=== PATIENT | male | born 1960 | race Caucasian/White ===

== ENCOUNTER → 2016-10-24 | Outpatient (CLI) | payer OTHER ==
[~2016-10-24] MED LIST: ACETAMINOPHEN GT; ACETAMINOPHEN PEG; ACETAMINOPHEN325 MG GT; ADULT MUCU100 MG/5 M GT; ADULT MUCU100 MG/5 M PEG; ADULT MUCU100 MG/5 M PO; ADULT TUSS100 MG/5 M PEG; ALBUTEROL INH; ALBUTEROL0.83 MG/ML IH; ALL DAY ALLERGY10 M3 GT; ALLERGY REL5 MG/5 ML GT; ARTIFICIAL TEAR1 DRP OP; ARTIFICIAL TEAR15 M3 OP; ASPIRIN GT; ASPIRIN81 M1 GT; ASPIRIN81 MG GT; ATROVENT30 ML NS; AYR SALINE50 M1 NS; AYR50 ML NS; BACID CAPLET1 EACH GT; BACID GT; BACLOFEN5 GM GT; CALCITRATE + V1 EACH GT; CALCIUM + VITAM1 TAB PEG; CALCIUM CIT PO; CALCIUM CITRATE1 T12 GT; CALMOSEPTINE O3.5 GM TOP; CALMOSEPTINE O3.5 GM TP; CEFEPIME IV; CENTRUM240 ML GT; CEROVITE SILVER1 TA1; CHILDREN'S5 MG/5 M1 GT; CHLORHEX GLU DT; CIPRO PO; CITRACAL + D CA1 TA1 GT; CITRACAL + D CA1 TA1 PEG; CITRACAL PLUS T1 TAB PEG; CITRACAL PLUS T1 TAB PO; CITRACAL200 MG PO; CLARITIN10 M3 PEG; CLARITIN10 MG PEG; CLARITIN5 MG/5 ML GT; CYANOCOBAL1000 MCG/M SUBQ; DEPRIZINE15 MG/1 ML GT; DIAPER RASH TOP; E.E.S. 200200 MG/5 M GT; ENEMA RC; FERROUS SULFATE GT; FLAGYL GT; FREE WATER GT; GAS RELIEF40 MG/0.1 GT; GAVILYTE-G SO4000 ML GT; GENASYME GT; GENTAMICIN; HEARTBURN150 MG GT; HYDROCORTISONE CREAM TOP; IPRATROPIUM0.2 MG/ML NEB; JEVITY1000 M1 GT; K-LOR HOSPITAL20 ME1 PEG; KCL GT; KLOR-CON PEG; LACTULOSE10 G/15 ML GT; LASIX GT; LASIX20 MG GT; LASIX20 MG PEG; LORATADINE GT; MAGIC BUTT C TOP; MAGIC BUTT CREAM; MAXIPIME; METOCLOPRAM5 MG/5 ML GT; METOCLOPRAM5 MG/5 ML PO; METOCLOPRAMID5 MG/M2 GT; METOCLOPRAMIDE GT; MIACALCIN4 ML; MIRALAX255 GM GT; MIRALAX255 GM PO; MONTELUKAST SOD10 MG GT; MUCOMYST200 MG/ML NEB; MVI LIQUID PO; MYLICON GT; MYLICON40 MG/0.1 GT; MYLICON40 MG/0.1 PEG; MYLICON40 MG/0.6; MYLICON40 MG/0.6 GT; NASCOBAL; NASCOBAL2.3 ML NS; NEBCIN1.2 GM IN; NILSTAT TOP; OSMOLITE 1.21000 ML GT; PATIENT'S PHARMACY; PERIDEX480 ML PO; POLYETHYLENE GL90 GM GT; POTASSIUM20 MEQ/11 GT; PRIMAXIN IV; PRO STAT GT; PROBIOTIC FORM1 EACH GT; PROBIOTIC1 EACH GT; PULMICORT NEB; PULMICORT0.5 MG/21 INH; Q PAP GT; Q-PAP PEG; Q-PAP160 MG/51 GT; REGLAN5 MG GT; REGLAN5 MG PEG; RISAMINE OINTM113 GM TP; RISAMINE OINTMENT; ROBAFEN100 MG/5 M GT; ROBITUSSIN100 MG/51 GT; ROBITUSSIN100 MG/51 PEG; SALINE NASAL GEL TOP; SENOKOT GT; SENOKOT60 ML PEG; SILVADENE TOP; SILVASORB; SINGULAIR PO; TALADINE150 MG GT; TAMIFLU75 M1 GT; THERAVITE; THERAVITE GT; TOBRAMYCIN; TOBRAMYCIN NEB; TYL325 GT; TYLENOL325 M1 GT; TYLENOL325 M1 PEG; TYLENOL325 M1 PO; VANCOMYCIN HCL125 MG GT; VANCOMYCIN250 MG/2.5 GT; VANCOMYCIN250 MG/5 M GT; VANCOMYCIN250 MG/5 M PEG; VASOLEX OINTMEN30 GM TP; VIBRAMYCIN100 M1 DOB; VITAMIN D1000 UNI1 GT; VITAMIN D3400 UNIT/1 GT; VITAMIN D400 UNI1 GT; VITAMIN D400 UNI1 PEG; VITAMIN D400 UNI3 PEG; VITAMIN D400 UNIT/1; XOPENEX1.25 MG/0. NEB; ZANTAC GT; ZANTAC PEG; ZANTAC PO; ZANTAC150 MG GT; ZITHROMAX200 MG/5 M PEG; [UNRECOGNIZED DRUG - OTHER]; [UNRECOGNIZED DRUG - OTHER]; [UNRECOGNIZED DRUG - OTHER]; [UNRECOGNIZED DRUG - OTHER] GT; [UNRECOGNIZED DRUG - OTHER] OP; [UNRECOGNIZED DRUG - OTHER] PO; [UNRECOGNIZED DRUG - OTHER] TOP; [UNRECOGNIZED DRUG - REMARK] GT
== END | disposition home or self-care (01) ==
LOC: CSSDAY 09:12
DX: M81.0 Age-related osteoporosis without current pathological fracture (principal)
CPT/HCPCS: 96372; J0897

== ENCOUNTER 2017-01-29 10:08 | Inpatient (IN) | payer OTHER ==
--- NOTE | ~2017-01-29 | HP ---
Unit #: [id number] #: [id number] Patient: HANY SAN [id number] [address] [place], [place] [address] [id number] I MR#: [id number] NAME: HANY SAN ROOM: 21522 Age: 56 Sex: M Admission Date: 01/29/2017 : 1960 Attending Physician: Jeff Travis M.D. Primary Care Physician: Tommy Suazo Sr., M.D. HISTORY AND PHYSICAL ADMISSION DIAGNOSES 1. Healthcare-acquired pneumonia. 2. Ileus. 3. History of mental retardation. 4. History of cerebral palsy. 5. History of dysphagia status post PEG. HISTORY OF PRESENT ILLNESS Mr. San is a 56-year-old gentleman, resident of [facility], with a history of mental retardation, cerebral palsy and dysphagia, who reported to the emergency room secondary to some increasing distress and abdominal discomfort. Initial evaluation in the emergency room with the CT of the abdomen showed ileus as well as the lung base opacity. He had a leukocytosis with 22,000 and was started on IV triple antibiotics for healthcare-acquired pneumonia coverage and getting admitted. The patient is one with the mental retardation and cerebral palsy. He is nonverbal. Therefore, I am not able to obtain any review of systems neither am I able to obtain any further history. So, a 12-point review of systems on this patient as above. PAST MEDICAL HISTORY History, again, mental retardation, cerebral palsy and dysphagia. PAST SURGICAL HISTORY Hemicolectomy and G-tube placement. SOCIAL HISTORY A resident of a [facility] at [place]. No history of tobacco, alcohol or drugs. FAMILY HISTORY Unremarkable. ALLERGIES Amoxicillin, sulfa, Levaquin and Augmentin. HOME MEDICATIONS I do not have in front of me but this will be clarified with the pharmacy and restated accordingly. PHYSICAL EXAMINATION GENERAL APPEARANCE: He is a 56-year-old gentleman in no acute distress. VITAL SIGNS: Blood pressure 135/87. Heart rate 97. Respirations 17. Temperature 98. Unit #: [id number] #: [id number] Patient: HANY SAN HEENT: Head is atraumatic. Pupils equal, round and reactive to light. Extraocular muscles intact. Oropharynx clear. NECK: Supple. No mass. No JVD. No bruits. CHEST: Diminished bilaterally. CARDIOVASCULAR: S1, S2. No murmurs. ABDOMEN: Soft, nontender, nondistended. EXTREMITIES: Lower extremities without any cyanosis, clubbing or edema. NEUROLOGIC: Unobtainable secondary to patient's mental retardation and cerebral palsy. DIAGNOSTIC STUDIES LABORATORY: White count, again, 22,000, hemoglobin 14.7, hematocrit 44.7. Chemistry: Unremarkable except of sodium of 134 and chloride 99. Lipase 52. IMAGING: CT abdomen and pelvis as above. ASSESSMENT AND PLAN 1. Healthcare-acquired pneumonia started on triple antibiotic coverage, Aztreonam, vancomycin and tobramycin. Pulmonary to follow. 2. Ileus status post colectomy in the past. We will ask LSA to follow. Keep n.p.o. for now. 3. Questionable pancreatitis. As above, keep n.p.o., hydrate, symptomatic management. 4. History of mental retardation and cerebral palsy. 5. GI and DVT prophylaxis. Dictated by Joselyn Teran/delmi TD: 01/29/2017 16:55 JOB #: [id number] HISTORY AND PHYSICAL Page 1 of 1 X Jfef Travis MD X HISTORY AND PHYSICAL
--- NOTE | ~2017-01-29 | CR72 ---
[facility] A Service of [facility] & [facility] RADIOLOGY TEXT RESULTS PATIENT: HANY SAN LOCATION: [facility] 314-01 : [birth year] UNIT #: [id number] AGE: [address]: Jeff Travis MD SEX: M ORDER DR: [id number] [facility] [address] [facility]. [place], [place] [address] [id number] I MR#: [id number] Acc #: [id number] NAME: HANY SAN : 1960 SEX: M STUDY DATE/TIME: 01/29/2017 16:43 UNIT: [address] ROOM: [facility] STUDY DESCRIPTION: CR Chest Single View Portable Attending Physician: Jeff Travis M.D. Ordering Physician: Jason Jim M.D. Primary Care Physician: Tommy Suazo Sr., M.D. MEDICAL IMAGING REPORT This report is preliminary unless electronic signature is present EXAM Portable chest HISTORY Line placement today. Congestion. FINDINGS Right IJ central line extends into the right atrium and its tip is obscured by overlying monitor lead. The line likely extends at least 2 cm into the right atrium beyond the junction of the SVC and right atrium. Moderate to moderately severe elevation of the right hemidiaphragm, with moderate linear atelectasis or scarring at the right base. Moderately severe right lower thoracic curve and severe left lumbar curve and moderate gaseous distension of small and large bowel suggesting generalized ileus. No pneumothorax. Dictated by... Hernan Remy M.D. THIS IS AN ELECTRONICALLY VERIFIED REPORT Hernan Remy M.D. at 01/29/2017 10:24 PM DFL/cee TD: 01/29/2017 19:31 JOB #: [id number] MEDICAL IMAGING REPORT Page 1 of 1 COPY
--- NOTE | ~2017-01-29 | CO ---
Unit #: [id number] #: [id number] Patient: HANY SAN [id number] [address] [address] [id number] I MR#: [id number] NAME: HANY SAN ROOM: 79404 Age: 56 Sex: M Admission Date: 01/29/2017 : 1960 Attending Physician: Jeff Travis M.D. Primary Care Physician: Tommy Suazo Sr., M.D. Consultation Date: 01/29/2017 CONSULTATION REPORT REASON FOR CONSULTATION Pneumonia and central line placement. CHIEF COMPLAINT Patient is basically mental retarded and was sent from [place] with the complaint of abdominal pain and possible small bowel obstruction. I am seeing him at the bedside. He appears to be comfortable. He is nonverbal. PAST MEDICAL HISTORY Mental retardation. SOCIAL HISTORY Nonsmoker, no alcohol, and no drug abuse. FAMILY HISTORY None as per record. MEDICATIONS As per MAR and have been reviewed. ALLERGIES Reviewed. REVIEW OF SYSTEMS Unable to obtain. PHYSICAL EXAMINATION VITAL SIGNS: Temperature 98, pulse 97, respirations 16, blood pressure 135/87, and oxygen saturation 93%. NEUROLOGICAL: Awake, at baseline. CARDIOVASCULAR: S1 plus S2. RESPIRATORY: Bilateral air entry. Bilateral mild rhonchi. GASTROINTESTINAL: Nontender, distended, soft. Bowel sounds positive. EXTREMITIES: No edema. DIAGNOSTIC STUDIES LABORATORY: White count is 22, hemoglobin 14, hematocrit 44, and platelet count is 244,000. IMAGING: CT abdomen and pelvis was done and showed diffuse ileus and right lower lobe infiltrate. ASSESSMENT 1. Ileus. Unit #: [id number] #: [id number] Patient: HANY SAN 2. Questionable healthcare-associated pneumonia. PLAN Admit the patient. IV fluids. Surgical consult. Broad spectrum IV antibiotics. GI and DVT prophylaxis. Please see orders for detailed plans. Thank you very much for the consultation. Dictated by... Joselyn Ocasio TD: 01/29/2017 18:47 JOB #: [id number] CONSULTATION REPORT Page 1 of 1 X Rae Holcomb MD CONSULTATION REPORT
--- NOTE | ~2017-01-29 | CO ---
Unit #: [id number] #: [id number] Patient: HANY SAN [id number] [address] [place], [place] [address] [id number] I MR#: [id number] NAME: HANY SAN ROOM: 314 Age: 56 Sex: M Admission Date: 01/29/2017 : 1960 Attending Physician: Jeff Travis M.D. Primary Care Physician: Tommy Suazo Sr., M.D. Consultation Date: 01/30/2017 CONSULTATION REPORT BRIEF HISTORY Patient is a 56-year-old gentleman with cerebral palsy who is total care, who presents with abdominal pain, questionable fevers. Initial evaluation in the emergency room showed a pneumonia as well as a possible ileus on CT scan. I am asked to evaluate for ileus. Past history is complex. He has had a hemicolectomy, G tube placement, Arin fundoplication. MEDICATIONS 1. Baclofen. 2. Potassium. 3. Pulmicort. 4. Tylenol. 5. Robafen. SOCIAL HISTORY No smoking. No alcohol. FAMILY HISTORY Negative for GI malignancy. REVIEW OF SYSTEMS Impossible to obtain. PHYSICAL EXAMINATION GENERAL: He is awake, alert, comfortable. VITAL SIGNS: Currently afebrile. HEENT: Unremarkable. NECK: Supple. No JVD. Trachea midline. LUNGS: Clear to auscultation bilaterally. Breath sounds symmetric. CARDIOVASCULAR: Regular rate and rhythm. ABDOMEN: His abdomen was soft. The G tube is clean. There are no hernias. No point tenderness. EXTREMITIES: Multiple contractures. DIAGNOSTIC STUDIES LABORATORY: Labs show a white count of 14.6, hemoglobin 13. ASSESSMENT Ileus, secondary to pneumonia. PLAN Recommend G tube to bedside drainage. Unit #: [id number] #: [id number] Patient: HANY SAN Dictated by... Paulino Wise M.D. Kaylyn TD: 01/30/2017 09:42 JOB #: [id number] CONSULTATION REPORT Page 1 of 1 X Paulino Wise MD X CONSULTATION REPORT
--- NOTE | ~2017-01-29 | CT4 ---
[facility] A Service of [facility] RADIOLOGY TEXT RESULTS PATIENT: HANY SAN LOCATION: A 314-01 : [birth year] UNIT #: [id number] AGE: [address]: Jeff Travis MD SEX: M ORDER DR: [id number] [facility] [address] [facility] [place] [facility]. [place], [place] [address] [id number] MR#: [id number] Acc #: [id number] NAME: HANY SAN : 1960 SEX: M STUDY DATE/TIME: 01/29/2017 11:20 UNIT: [facility] ROOM: STUDY DESCRIPTION: CT Abd and Pelv Wo Cont Attending Physician: Jason Jim M.D. Ordering Physician: Jason Jim M.D. Primary Care Physician: Tommy Suazo Sr., M.D. MEDICAL IMAGING REPORT This report is preliminary unless electronic signature is present EXAM Abdomen and pelvis CT without contrast. HISTORY Abdominal pain with nausea, onset today. COMPARISON 04/01/2016 TECHNIQUE Axial images were obtained without contrast. This CT exam was performed with one or more of the following radiation dose reduction techniques: automatic exposure control, adjustment of mA and/or kV according to patient size, and iterative reconstruction. FINDINGS Consolidation is seen at both lung bases, right worse than left. Right basilar consolidation is worse since the previous examination, although the difference is not great. No definite acute pneumonia is seen at the base. In the abdomen, colonic distension is seen predominantly. There are also moderately distended small bowel loops. The appearance is similar to the previous scan. The pattern is nonspecific. It is more suggestive of an ileus than a mechanical obstruction. There is a large amount of stool in the rectosigmoid. There is a right inguinal hernia that contains part of the bladder. No free fluid is seen in the pelvis or in the peritoneal cavity. IMPRESSION 1. Moderately distended small and large bowel loops are noted in a nonspecific pattern. Findings are more suggestive of an ileus than a [facility] A Service of [facility] RADIOLOGY TEXT RESULTS PATIENT: HANY SAN LOCATION: A 314-01 : [birth year] UNIT #: [id number] AGE: [address]: Jeff Travis MD SEX: M ORDER DR: mechanical obstruction. Fecal impaction in the distal colon could also account for these findings. There does appear to be a large amount of stool in the rectosigmoid area. 2. Consolidative changes at the right lung base are slightly more prominent than on the previous examination. However, the change is not great and no definite new superimposed basilar pneumonia is identified. Dictated by... Keyon Luis M.D. THIS IS AN ELECTRONICALLY VERIFIED REPORT Keyon Luis M.D. at 02/02/2017 6:27 PM DOMINGUEZ/jc TD: 01/29/2017 12:20 JOB #: [id number] MEDICAL IMAGING REPORT Page 1 of 1 COPY
--- NOTE | ~2017-01-29 | A ---
[facility] Nutrition Therapy DATE: 01/30/17 Patient: HANY SAN Physician: SANG Address: [facility] Room/Bed: [address] [place] [address], Zip: [place] [address] Admit Date: 01/29/17 Date of : [birth year] Height: 5 2 Weight: NUTRITIONAL ASSESSMENT: REASON: 1 point malnutrition risk score re: home TF + low BMI Admitting Dx: 56 y/o male admitted from [place] with HCAP and ileus PMH: Mental retardation, Cerebal Palsy, dysphagia s/p PEG, hemicolectomy, Arin Anthropometrics: Ht: 55" (per chart), Wt: 33.5 kg (per bed scale), BMI: 17.2 (underweight) Labs: K+ 3.3, Na/glucose WNL, no Mg/Phos Meds: Nacl, Mylicon, D5NS @ 75 ml/hr I/O & Bowel function: Last BM unknown Skin Integrity: [place] L groin/coccyx/low back, scar to abdomen/coccyx, no edema Estimated Nutrition Needs: 5423-7738 kcals per day (30-35 kcals/kg) 40-50 g protein per day (1.2-1.5 g/kg) Fluids consistent with kcal needs or per MD Assessment: Chart reviewed, events noted. Patient is a resident at [facility] with history as stated above, is stict NPO at [facility] and received EN with Promote @ 90 ml/hr from 8a-8p via PEG, which meets the patient's estimated nutrition needs. CT scan confirmed ileus, g-tube currently to gravity and he is not receiving EN at this time. He is clinically underweight, [facility] Note height in [facility] is incorrect. He is on room air, is non-verbal and therefore inappropriate for interview. See EN recs as stated below, will follow. Dx: Inadequate energy intake r/t ileus AEB NPO, g-tube to gravity. Intervention: EN recs as stated below, replace lytes Monitoring, Evaluation and Goals: 1. EN consistent with estimated needs. 2. Promote normal GI function. 3. GRV's < 400 ml. 4. Promote a gradual weight gain towards a healthy BMI range. 5. Lytes WNL. [facility] Nutrition Therapy DATE: 01/30/17 Patient: HANY SAN Physician: SANG Address: [facility]/MR Room/Bed: [address] [place] [address], Zip: [place] [address] Admit Date: 01/29/17 Date of : 62 Height: 5 2 Weight: Monitor: Per protocol, criteria to determine if above goals met Recommendations: 1. Suggest starting enteral nutrition via PEG once medically feasible. Recommend Promote with Fiber formula, start @ 20 ml and increase by 10 ml q 6 hours until goal rate of 45 ml/hr is reached. This will provide 1080 kcals, 68 g protein and 896 ml water. Once at goal rate add free water flushes of 75 ml QID or per MD. 2. Do not hold feeds for residuals < 400 ml. For residuals > 400 ml do not stop feeds and measure again in 4 hours. If 2nd measurement is > 400 ml stop feeds and continue to reassess every 4 hours. Restart feeds once residual is < 400 ml. If ileus does not improve suggest adding Reglan to medication regimen. 3. Replace lyts prn (K+ low). 4. Please enter the patient's correct heigh (55") and current weight in [facility]. Continue to weigh q 3 days for monitoring purposes, as the patient is underweight. 5. Please consult RD or call [phone] with any further nutritional needs. RD will follow hospital course Mild-moderate nutrition risk Respectfully, Darshana Jackson, BRANDON, LD [employer] [facility] [employer] cc: client file
--- NOTE | ~2017-01-29 | DS ---
Unit #: [id number] #: [id number] Patient: HANY SAN [id number] [address] [place], [place] [address] [id number] I MR#: [id number] NAME: HANY SAN ROOM: 314 Age: 56 Sex: M Admission Date: 01/29/2017 : 1960 Discharge Date: 02/01/2017 Attending Physician: Jeff Travis M.D. Primary Care Physician: Tommy Suazo Sr., M.D. DISCHARGE SUMMARY DISCHARGE DIAGNOSES 1. Questionable pneumonia was ruled out by Pulmonary. 2. Ileus, resolved. 3. History of mental retardation. DISPOSITION Going back to [facility]. Please note that if there are transportation issues, patient might go first thing in the morning. DISCHARGE MEDICATIONS 1. Pulmicort inhaler b.i.d. 2. Tylenol p.r.n. 3. Simethicone 40 mg per G-tube q.i.d. 4. Cetirizine 10 mg daily. 5. GaviLyte solution b.i.d. 6. Guaifenesin q.6 hours p.r.n. for cough. 7. Ranitidine 150 mg daily. 8. Singulair 10 mg daily. 9. Calcium with vitamin D daily. 10. Potassium chloride pills b.i.d. 11. Baclofen 10 mg b.i.d. 12. Vitamin D 400 units per G-tube daily. Please note that all medications are through the G-tube. CONSULTS DURING THIS HOSPITAL STAY 1. Dr. Wise, [facility]. 2. Dr. Holcomb, Pulmonary. LABS, DIAGNOSTICS, AND PROCEDURES DURING THIS HOSPITAL STAY 1. CT abdomen and pelvis on admission showed some ileus and also consolidative changes in the right lung base. 2. Chest x-ray showed no acute findings. Some moderate to moderately severe elevation of the right hemidiaphragm with linear atelectasis or scarring at the right base. 3. Blood culture negative. HISTORY OF PRESENT HOSPITAL STAY Please refer to History and Physical done by me for initial presentation on this gentleman. ACTIVE PROBLEMS DIAGNOSED Questionable pneumonia. Initial CT was suspicious for pneumonia. Patient was started on triple IV antibiotics for pneumonia coverage. However, Unit #: [id number] #: [id number] Patient: HANY SAN patient remained nontoxic appearing with no sign of respiratory distress, afebrile, and white count of 10.7. Patient is status post evaluation per Pulmonary. Per Pulmonary, there is no pneumonia, and all the antibiotics have been discontinued. Ileus, status post evaluation per Surgery. This was managed conservatively with some IV fluids and today restarted on fluids. He was briefly put on Reglan and tolerating diet. No surgical issues. Stable to be discharged. History of mental retardation. DISPOSITION As above with discharge medications as above. FOLLOWUP With Dr. Dawson at the correction. Dictated by... Joselyn Teran/abbi TD: 02/01/2017 17:47 JOB #: [id number] DISCHARGE SUMMARY Page 1 of 1 X Jeff Travis MD X DISCHARGE SUMMARY
--- NOTE | ~2017-01-29 | OR ---
Unit #: [id number] #: [id number] Patient: HANY SAN [id number] [address] [address] [id number] I MR#: [id number] NAME: HANY SAN ROOM: 314 Date of Procedure: 01/29/2017 Admission Date: 01/29/2017 Surgeon: Rae Holcomb M.D. : 1960 Attending Physician: Jeff Travis M.D. Primary Care Physician: Tommy Suazo Sr., M.D. PROCEDURE OPERATIVE NOTE PROCEDURE PERFORMED Right internal jugular central venous catheter placement. INDICATION IV access. DETAILS OF PROCEDURE After placing patient in proper position, with ultrasound guidance and under all aseptic measures, we cleaned the right side of the neck with ChloraPrep and then placed a triple-lumen central venous catheter in the right internal jugular central vein. The guidewire was removed in total. All three ports were flushed and working. No complications happened. Patient tolerated the procedure very well. Dictated by... Joselyn Ocasio TD: 01/29/2017 18:55 JOB #: [id number] PROCEDURE OPERATIVE NOTE Page 1 of 1 X Rae Holcomb MD PROCEDURE OPERATIVE NOTE
[~2017-01-29 10:08] MED LIST changes: -ALL DAY ALLERGY10 M3 GT; -BACLOFEN5 GM GT; -CALCITRATE + V1 EACH GT; -GAVILYTE-G SO4000 ML GT; -HEARTBURN150 MG GT; -POTASSIUM20 MEQ/11 GT; -PULMICORT0.5 MG/21 INH; -ROBAFEN100 MG/5 M GT; -TYL325 GT; -VITAMIN D3400 UNIT/1 GT
[2017-01-29 11:22] LABS: URINE SOURCE CLEAN CATCH
[2017-01-29 11:31] LABS: URINE APPEARANCE TURBID; URINE BILIRUBIN NEG (NEG); URINE BLOOD NEG (NEG); URINE COLOR YELLOW; URINE GLUCOSE NEG (NEG); URINE KETONE 1+ (NEG); URINE LEUKOCYTE ESTERASE NEG (NEG); URINE NITRATE NEG (NEG); URINE PH 7.5 (5-8); URINE PROTEIN 1+ (NEG); URINE SPECIFIC GRAVITY 1.017 (1.003-1.035)
[2017-01-29 11:32] LABS: URBCS1 AUWI 0-2 /[HPF] (0-2); URINE BACTERIA AUWI NEG (NEGATIVE); URINE SQUAMOUS EPITHELIAL CELL FEW /[HPF]; UWBCS1 AUWI 0-2 (0-5)
[2017-01-29 11:32] LABS: BASOPHIL% 0.1 % (0-2.5); EOSINOPHIL# 0.1 X10e3 (0-0.7); EOSINOPHIL% 0.4 % (0.0-7.0); HEMATOCRIT 44.7 % (38.0-50.0); HEMOGLOBIN 14.7 gm/dL (13.0-16.0); LYMPHOCYTE% 4.6 % (17.0-45.0); MEAN CELL VOLUME 90.5 FL (83-96); MEAN CORPUSCULAR HEMOGLOBIN 29.7 PG (28-34); MEAN CORPUSCULAR HGB CONC 32.8 g/dL (30-36); MEAN PLATELET VOLUME 9.6 FL (6.5-11.5); MONOCYTE# 1.1 X10e3 (0-1.0); MONOCYTE% 5.1 % (3.0-12.0); NEUTROPHIL# 19.8 X10e3 (1.5-7.1); NEUTROPHIL% 89.8 % (40-75); PLATELET COUNT 244 X10e3 (140-420); RED BLOOD COUNT 4.94 X10e (3.90-5.60); RED CELL DISTRIBUTION WIDTH 13.4 % (11.0-15.5); WHITE BLOOD COUNT 22.1 X10e3 (4.0-10.5)
[2017-01-29 11:33] LABS: DIFF IND YES
[2017-01-29 11:42] LABS: CULTURE INDICATED? NO
[2017-01-29 11:45] LABS: URINE AMORPHOUS SEDIMENT AMORP PHOSPHATES; URINE MUCUS PRESENT
[2017-01-29 12:08] LABS: PLATELET ESTIMATE NORMAL (NORMAL); RBC NORMAL YES
[2017-01-29 12:28] LABS: ALBUMIN SERUM 3.6 g/dL (3.5-5.0); BILIRUBIN, DIRECT 0.2 mg/dL (0.0-0.2); BILIRUBIN,INDIRECT 1.1 mg/dL (0.0-0.9); BILIRUBIN,TOTAL 1.3 mg/dL (0.2-2.0); CALCIUM SERUM 8.9 mg/dL (8.4-10.2); CREATININE SERUM 0.5 mg/dL (0.6-1.4); POTASSIUM 3.9 mmol/L (3.5-5.1); PROTEIN TOTAL SERUM 7.7 g/dL (6.0-8.3)
[2017-01-29] MEDS ORDERED: CALCITRATE + V1 EACH GT (14:53)
[2017-01-29] MEDS ORDERED: BACLOFEN5 GM GT (14:53)
[2017-01-29 14:54] LABS: POC - CKMB 1.7 ng/mL (0.0-7.9); POC - TROPONIN <0.05 ng/mL (<=0.05)
[2017-01-29] MEDS ORDERED: GAS RELIEF40 MG/0.1 GT (14:54)
[2017-01-29] MEDS ORDERED: GAVILYTE-G SO4000 ML GT (14:55)
[2017-01-29] MEDS ORDERED: MONTELUKAST SOD10 MG GT (14:55)
[2017-01-29] MEDS ORDERED: POTASSIUM20 MEQ/11 GT (14:57)
[2017-01-29] MEDS ORDERED: HEARTBURN150 MG GT (14:58)
[2017-01-29] MEDS ORDERED: VITAMIN D3400 UNIT/1 GT (15:02)
[2017-01-29] MEDS ORDERED: PULMICORT0.5 MG/21 INH (15:02)
[2017-01-29] MEDS ORDERED: TYL325 GT (15:03)
[2017-01-29] MEDS ORDERED: ALL DAY ALLERGY10 M3 GT (15:04)
[2017-01-29] MEDS ORDERED: ROBAFEN100 MG/5 M GT (15:04)
[2017-01-29 17:13] LABS: BASOPHIL% 0.2 % (0-2.5); EOSINOPHIL# 0.1 X10e3 (0-0.7); EOSINOPHIL% 0.4 % (0.0-7.0); HEMATOCRIT 41.3 % (38.0-50.0); HEMOGLOBIN 13.5 gm/dL (13.0-16.0); LYMPHOCYTE# 1.7 X10e3 (1.0-3.5); LYMPHOCYTE% 11.9 % (17.0-45.0); MEAN CELL VOLUME 89.9 FL (83-96); MEAN CORPUSCULAR HEMOGLOBIN 29.2 PG (28-34); MEAN CORPUSCULAR HGB CONC 32.5 g/dL (30-36); MEAN PLATELET VOLUME 8.9 FL (6.5-11.5); MONOCYTE# 0.9 X10e3 (0-1.0); MONOCYTE% 5.9 % (3.0-12.0); NEUTROPHIL# 11.9 X10e3 (1.5-7.1); NEUTROPHIL% 81.6 % (40-75); PLATELET COUNT 253 X10e3 (140-420); RED CELL DISTRIBUTION WIDTH 13.3 % (11.0-15.5); WHITE BLOOD COUNT 14.6 X10e3 (4.0-10.5)
[2017-01-29 17:15] LABS: DIFF IND NO
[2017-01-29 17:39] LABS: ALBUMIN SERUM 3.3 g/dL (3.5-5.0); ALKALINE PHOSPHATASE 66 U/L (32-92); ALT (SGPT) 25 U/L (10-40); AST (SGOT) 22 U/L (10-42); BILIRUBIN,TOTAL 1.4 mg/dL (0.2-2.0); BLOOD UREA NITROGEN 15 mg/dL (9-23); CALCIUM SERUM 8.4 mg/dL (8.4-10.2); CARBON DIOXIDE 26 mmol/L (22-31); CHLORIDE 101 mmol/L (100-111); CREATININE SERUM 0.5 mg/dL (0.6-1.4); GLUCOSE FASTING 85 mg/dL (70-110); POTASSIUM 3.5 mmol/L (3.5-5.1); PROTEIN TOTAL SERUM 7.1 g/dL (6.0-8.3); SODIUM 135 mmol/L (135-145)
[2017-01-29 17:53] LABS: PROCALCITONIN <0.05 NG/ML
[2017-01-29 18:39] LABS: ARTERIAL BLD GAS O2 SATURATION 96.7 % (90.0-100.0); ARTERIAL BLOOD GAS CARBOXY HB 0.7 %sat (0.0-9.0); ARTERIAL BLOOD GAS HCO3 23.7 mmol/L; ARTERIAL BLOOD GAS MET HB 0.7 %sat (0.0-2.0); ARTERIAL BLOOD GAS PCO2 34.1 mmHg (35.0-45.0)
[2017-01-29 18:40] LABS: ARTERIAL BLOOD GAS ALLEN TEST NORMAL; ARTERIAL BLOOD GAS ART SITE RIGHT RADIAL; ARTERIAL BLOOD GAS DELIVERY ROOM AIR; ARTERIAL DRAW? YES
[2017-01-30 09:20] LABS: BASOPHIL% 0.3 % (0-2.5); EOSINOPHIL# 0.2 X10e3 (0-0.7); EOSINOPHIL% 2.7 % (0.0-7.0); HEMATOCRIT 38.6 % (38.0-50.0); HEMOGLOBIN 12.5 gm/dL (13.0-16.0); LYMPHOCYTE# 1.6 X10e3 (1.0-3.5); LYMPHOCYTE% 19.1 % (17.0-45.0); MEAN CORPUSCULAR HEMOGLOBIN 29.6 PG (28-34); MEAN CORPUSCULAR HGB CONC 32.5 g/dL (30-36); MEAN PLATELET VOLUME 10.1 FL (6.5-11.5); MONOCYTE# 1.1 X10e3 (0-1.0); MONOCYTE% 13.4 % (3.0-12.0); NEUTROPHIL# 5.4 X10e3 (1.5-7.1); NEUTROPHIL% 64.5 % (40-75); PLATELET COUNT 228 X10e3 (140-420); RED BLOOD COUNT 4.24 X10e (3.90-5.60); RED CELL DISTRIBUTION WIDTH 13.5 % (11.0-15.5); WHITE BLOOD COUNT 8.3 X10e3 (4.0-10.5)
[2017-01-30 09:25] LABS: DIFF IND NO
[2017-01-30 10:18] LABS: CALCIUM SERUM 7.6 mg/dL (8.4-10.2); CREATININE SERUM 0.3 mg/dL (0.6-1.4); GLOM FILT RATE Estimated 150.6 mL/min (>60); POTASSIUM 3.3 mmol/L (3.5-5.1)
[2017-01-31 02:22] LABS: CALCIUM SERUM 7.5 mg/dL (8.4-10.2); CREATININE SERUM 0.3 mg/dL (0.6-1.4); GLOM FILT RATE Estimated 150.6 mL/min (>60); MAGNESIUM 1.7 mg/dL (1.6-3.0); POTASSIUM 3.4 mmol/L (3.5-5.1)
[2017-02-01 05:18] LABS: HEMATOCRIT 40.3 % (38.0-50.0); HEMOGLOBIN 13.4 gm/dL (13.0-16.0); MEAN CELL VOLUME 88.8 FL (83-96); MEAN CORPUSCULAR HEMOGLOBIN 29.6 PG (28-34); MEAN CORPUSCULAR HGB CONC 33.3 g/dL (30-36); MEAN PLATELET VOLUME 9.3 FL (6.5-11.5); RED BLOOD COUNT 4.54 X10e (3.90-5.60); RED CELL DISTRIBUTION WIDTH 13.5 % (11.0-15.5); WHITE BLOOD COUNT 10.7 X10e3 (4.0-10.5)
[2017-02-01 06:05] LABS: CALCIUM SERUM 7.4 mg/dL (8.4-10.2); CREATININE SERUM 0.3 mg/dL (0.6-1.4); GLOM FILT RATE Estimated 150.6 mL/min (>60); MAGNESIUM 1.8 mg/dL (1.6-3.0); POTASSIUM 3.5 mmol/L (3.5-5.1)
== END 2017-02-02 10:19 | DRG 390 ==
LOC: CED 10:08 → C3A PCU 12:50 → CEDOF 12:50 → CED 13:48 → CEDOF 13:48 → C3A PCU 18:47
PROVIDERS: Hospitalist; Internal Medicine
PROC: 05HM33Z Insertion of Infusion Device into Right Internal Jugular Vein, Percutaneous Approach (ICD-10-PCS; principal; 2017-01-29)
PROC: B543ZZA Ultrasonography of Right Jugular Veins, Guidance (ICD-10-PCS; 2017-01-29)
DX: K56.7 Ileus, unspecified (principal); E87.6 Hypokalemia; G80.9 Cerebral palsy, unspecified; Z88.1 Allergy status to other antibiotic agents; Z88.2 Allergy status to sulfonamides
CPT/HCPCS: 36415; 36600; 71010; 74176; 80048; 80053; 80076; 80200; 81003; 82308; 82553; 82803; 83605; 83690; 83735; 84484; 85025; 85027; 87040; 94640; 94760; 99285; J2765; J3260; J3370; J3475

== ENCOUNTER → 2017-05-23 | Outpatient (CLI) | payer OTHER ==
[~2017-05-23] MED LIST changes: +ALL DAY ALLERGY10 M3 GT; +BACLOFEN5 GM GT; +CALCITRATE + V1 EACH GT; +GAVILYTE-G SO4000 ML GT; +HEARTBURN150 MG GT; +POTASSIUM20 MEQ/11 GT; +PULMICORT0.5 MG/21 INH; +ROBAFEN100 MG/5 M GT; +TYL325 GT; +VITAMIN D3400 UNIT/1 GT
== END | disposition home or self-care (01) ==
LOC: CSSDAY 13:06
DX: M81.0 Age-related osteoporosis without current pathological fracture (principal)
CPT/HCPCS: 96372; J0897